=== PATIENT | female | born 1975 | race Caucasian/White ===

== ENCOUNTER 2023-12-25 07:00 | Outpatient (NON) | payer OTHER, SELFPAY | END 2023-12-25 07:01 | disposition home or self-care (01) | LOC: ANHLAB 12-26 09:00 | PROVIDERS: PCP Family Medicine Adolescent Medicine; Visit Provider Internal Medicine Gastroenterology | DX: Z12.11 Encounter for screening for malignant neoplasm of colon (principal); D12.2 Benign neoplasm of ascending colon; D12.5 Benign neoplasm of sigmoid colon | CPT/HCPCS: 88305 ==

== ENCOUNTER 2023-12-25 07:02 | Day surgery (SDC) | payer OTHER, SELFPAY ==
[2023-10-24 09:38] VITALS: BMI 31.6
[2023-12-13 07:54] VITALS: BMI 31.2
--- NOTE | 2023-12-24 14:11 | PM.HPGS ---
History of Present Illness History of Present Illness Consent: Risks, benefits, and alternatives have been discussed and questions answered. Patient agrees to proceed with procedure. Chief complaint: Other Fecal Abnormalities Narrative: Rosa Sarah is a 48 year old female who is referred for colon cancer screening, due to + cologuard test. Review of Systems Review of Systems: All systems reviewed & are unremarkable except as noted in HPI and below PMFSH Past Medical History Medical History Meniere's disease Obesity Social History Social History Smoking status: Never smoker Alcohol intake: never Substance use: never Substance use type: does not use Living arrangements: with family Spiritual care concerns: No Meds Home Medications and Allergies Home Medications Medication Instructions Recorded Confirmed Type riboflavin (vitamin B2) 400 mg 400 mg PO DAILY 03/16/23 12/25/23 History tablet triamterene 37.5 1 cap PO DAILY 03/16/23 12/25/23 History mg-hydrochlorothiazide 25 mg capsule atorvastatin 10 mg tablet 10 mg PO DAILY #90 tabs 09/03/23 12/25/23 Rx diazepam 5 mg tablet See Rx Instructions PO TID PRN 11/12/23 12/25/23 Rx vertigo #20 tabs Allergies Allergy/AdvReac Type Severity Reaction Status Date / Time penicillin G Allergy Mild Rash Verified 12/25/23 08:09 NSAIDS (Non-Steroidal Allergy Unknown Swelling Verified 12/25/23 08:09 Anti-Inflamma Exam Const: General: alert Orientation/consciousness: patient oriented x3 Resp: Auscultation: clear to auscultation bilaterally Cardio: Rhythm: regular rhythm GI: GI Palp: Yes Soft to palpation and No Tenderness to palpation present (GI) Neuro: General: patient oriented x3 Assessment and Plan Assessment and plan (1) Colon cancer screening: Code(s): Z12.11 - Encounter for screening for malignant neoplasm of colon Status: Acute Assessment and Plan: Colonoscopy with possible biopsy or polypectomy or cautery or injection of substances.
[2023-12-25 08:17] VITALS: BP 129/95; PULSE 87; RESP 16; TEMP 36.2; O2SAT 100; BMI 33.6
[2023-12-25] MEDS: LACTATED RINGERS 1,000 ML 150 ML IV CONT (08:37)
--- NOTE | 2023-12-25 08:43 | WPDANESEPPF ---
Anes - Initial Pre Proc Eval Procedure: Operation Date: 12/25/23 09:30 Proposed Procedures p Colonoscopy - Migue Pereira MD Date/Time: 12/25/23 08:43 Surgeon: Migue Pereira MD Pre Op Diagnosis: Other Fecal Abnormalities Patient Data Age: 48 Gender: F Height: 1.7 m Weight: 97.4 kg Last Vital Signs Temp 36.2 C L 12/25/23 08:17 Pulse 87 12/25/23 08:17 Resp 16 12/25/23 08:17 BP 129/95 H 12/25/23 08:17 Pulse Ox 100 12/25/23 08:17 O2 Del Method Room Air 12/25/23 08:17 Allergies Allergy/AdvReac Type Severity Reaction Status Date / Time penicillin G Allergy Mild Rash Verified 12/25/23 08:09 NSAIDS (Non-Steroidal Allergy Unknown Swelling Verified 12/25/23 08:09 Anti-Inflamma Home Medications Medication Instructions Recorded Confirmed Type riboflavin (vitamin B2) 400 mg 400 mg PO DAILY 03/16/23 12/25/23 History tablet triamterene 37.5 1 cap PO DAILY 03/16/23 12/25/23 History mg-hydrochlorothiazide 25 mg capsule atorvastatin 10 mg tablet 10 mg PO DAILY #90 tabs 09/03/23 12/25/23 Rx diazepam 5 mg tablet See Rx Instructions PO TID PRN 11/12/23 12/25/23 Rx vertigo #20 tabs Patient hx anesthesia problems: none Family hx anesthesia problems: none Results Review: All pre-operative results and documents have been reviewed as part of the pre-operative evaluation. [facility] Past Medical History Medical History (Updated 12/25/23 @ 08:43 by Eric Will MD) Meniere's disease Obesity Social History Social History Smoking status: Never smoker Alcohol intake: never Substance use: never Substance use type: does not use Living arrangements: with family Spiritual care concerns: No Anes - Eval Final PreProcedure Day of Procedure 12/25/23 08:43 Patient weight: obese Heart: regular rate and rhythm Lungs: clear to auscultation Airway: Mallampati scale class II Neurological: alert and oriented Last oral intake: >/= 8 hours ASA classification: II Emergent: no Anesthetic plan: proceed Anesthesia type and monitoring: general GIVS and standard monitoring Results Review: All pre-operative results and documents have been reviewed as part of the pre-operative evaluation. Informed Consent: The patient's anesthetic plan and its attendant risks and benefits were discussed with the patient/family/POA. Questions were solicited and answers provided to the satisfaction of the patient/family/POA.
[2023-12-25 09:50] VITALS: BP 109/79; PULSE 88; RESP 16; O2SAT 100
[2023-12-25 10:00] VITALS: BP 122/88; PULSE 61; RESP 15; O2SAT 100
--- NOTE | 2023-12-25 10:03 | WPDANESPN ---
Anes - Prog Note Post-Op Date/Time: 12/25/23 10:03 Cardiovascular status: normal Respiratory status: normal Airway patency: baseline Mental status: baseline Post-Op hydration status: normal Vital Signs: Last Vital Signs Temp 36.2 C L 12/25/23 08:17 Pulse 61 12/25/23 10:00 Resp 15 12/25/23 10:00 BP 122/88 12/25/23 10:00 Pulse Ox 100 12/25/23 10:00 O2 Del Method Room Air 12/25/23 10:00 Pain Score (VAS): 0/10 I/O: Intake & Output 12/24/23 12/25/23 12/25/23 23:59 07:59 15:59 Intake Total 300 Balance 300 Patient Feedback: Patient satisfied with anesthetic care.
[2023-12-25 10:10] VITALS: BP 124/85; PULSE 66; RESP 16; O2SAT 100
== END 2023-12-25 10:20 | disposition home or self-care (01) ==
PROVIDERS: PCP Family Medicine Adolescent Medicine; Visit Provider Internal Medicine Gastroenterology
PROC: 0DJD8ZZ Inspection of Lower Intestinal Tract, Via Natural or Artificial Opening Endoscopic (ICD-10-PCS; CPT 45378; principal; 2023-12-25 09:30)
DX: Z12.11 Encounter for screening for malignant neoplasm of colon (principal); D12.2 Benign neoplasm of ascending colon; D12.5 Benign neoplasm of sigmoid colon
CPT/HCPCS: 45385

== ENCOUNTER 2024-10-22 14:36 | Outpatient (CLI) | payer OTHER, SELFPAY ==
--- NOTE | ~2024-10-22 | MR_ITS ---
EXAMINATION: MR shoulder RT wo con DATE: 10/22/2024 15:02 INDICATION: Enthesopathy with chronic right shoulder pain TECHNIQUE: Magnetic resonance imaging (MRI) of the right shoulder was performed without intravenous c ontrast. Sequences included axial PD-weighted FS FSE, coronal oblique PD-weighted FS FSE, coronal obl ique T2-weighted FS FSE, sagittal PD-weighted FS FSE, and sagittal T1-weighted SE. COMPARISON: None. FINDINGS: Coracoacromial arch: The acromion undersurface is mildly curved in morphology (type I-II). The coracoacromial ligament is normal. Mild acromioclavicular osteoarthritis. Rotator cuff: The supraspinatus, infraspinatus and teres minor tendons are normal. The subscapularis tendon is norm al. Normal rotator cuff muscle bulk and signal. Biceps tendon, glenoid labrum and glenohumeral cartilage: Long head of the biceps tendon is normal. Glenoid labrum is normal with normal anterosuperior sublabr al foramen. Small chondral fissure along the cephalad rim of the glenoid with very small underlying c ystlike change. Fluid: Physiologic amount of fluid in the glenohumeral joint and biceps tendon sheath. No loose osteochondr al bodies. Small amount of fluid in the subacromial/subdeltoid bursa consistent with mild bursitis. Bones: Small low signal intensity bone island at the acromion. No fracture or pathologic marrow replacing pr ocess. There is increased soft tissue replacing the normal T1 fat signal at the rotator cuff interval which can be seen in the setting of adhesive capsulitis which is ultimately a clinical diagnosis. IMPRESSION: 1. Small chondral fissure at the 12:00 position of the rim of the glenoid with very small underlying subarticular cystlike change. Glenohumeral cartilage is otherwise unremarkable with normal glenoid la ismael. 2. Increased soft tissue replacing the normal T1 hyperintense fat signal at the rotator cuff interval which can be seen in the setting of adhesive capsulitis which is ultimately a clinical diagnosis. 3. Mild acromioclavicular osteoarthritis. Reviewed, dictated and finalized at location [facility]. [facility] IMPRESSION: 1. Small chondral fissure at the 12:00 position of the rim of the glenoid with very small underlying subarticular cystlike change. Glenohumeral cartilage is o therwise unremarkable with normal glenoid labrum. 2. Increased soft tissue replacing the normal T1 hyperintense fat signal at the rotator cuff interval which can be seen in the setting of adhesive capsulitis which is ultimately a clinical diagnosis. 3. Mild acromioclavicular osteoarthritis.
== END 2024-10-22 14:37 | disposition home or self-care (01) ==
LOC: MICIMG 14:36
PROVIDERS: PCP Family Medicine Adolescent Medicine; Visit Provider Family Medicine Adolescent Medicine
DX: M77.8 Other enthesopathies, not elsewhere classified (principal); M19.011 Primary osteoarthritis, right shoulder
CPT/HCPCS: 73221

== ENCOUNTER 2025-03-22 10:05 | Emergency (ER) | payer OTHER, SELFPAY ==
--- NOTE | ~2025-03-22 | XR_ITS ---
EXAMINATION: XR wrist RT min 3V DATE: 03/22/2025 10:47 INDICATION: Nontraumatic shoulder pain at the hamate and pisiform TECHNIQUE: Posteroanterior, ulnar deviation, oblique, and lateral views of the right wrist were obtai emily. COMPARISON: none FINDINGS: Alignment is normal. No fracture. Joint spaces are normal. No erosions. There are couple small hetero topic ossicles along the proximal margin of the hook the hamate. Soft tissues are unremarkable. IMPRESSION: 1. No acute osseous abnormality. 2. 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 Reviewed, dictated and finalized at location A. IMPRESSION: 1. No acute osseous abnormality. 2. Multiple heterotopic ossicles along the proximal margin of the hamate, poten hungy enthesopathic at the insertion of the flexor carpi ulnaris tendon.
[2025-03-22 10:12] VITALS: BP 176/95; PULSE 85; RESP 16; TEMP 36.3; O2SAT 100
--- NOTE | 2025-03-22 10:44 | ED.EXTPRO ---
HPI - Extremity Problem General Chief complaint: Extremity Injury, Upper Stated complaint: R Hand Pain Time Seen by Provider: 03/22/25 10:33 Source: patient and RN notes reviewed Mode of arrival: ambulatory Limitations: no limitations History of Present Illness HPI Narrative: Patient presents today complaining of pain to the palmar aspect of her right hand at the pisiform x3 days. Denies trauma, injury, repetitive motion, or repetitive gripping. Pain has been increasing since onset and increases significantly with range of motion the wrist or fingers. Denies numbness or tingling in the hand or wrist. 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 Reports her pain is out of proportion to physical findings, and has noted some very mild localized swelling to the affected area. She has tried a wrist brace at night as well as tylenol and ice without much relief. Reports some recent radiation of the pain through to the dorsum of the hand. Related Data Allergies Allergy/AdvReac Type Severity Reaction Status Date / Time penicillin G Allergy Mild Rash Verified 03/22/25 10:07 NSAIDS (Non-Steroidal Allergy Unknown Swelling Verified 03/22/25 10:07 Anti-Inflamma PMFSH Past Medical History Medical History Obesity Meniere's disease Social History Social History Smoking status: Never smoker Alcohol intake: never Substance use: never Substance use type: does not use Do You Feel Safe in your Home?: Yes Lack of Transportation: No Lack of Food: Never True Current Housing: I Have Housing Concerned About Future Housing: No Difficulty Paying Gas/Electric Bills: No Difficulty Paying for Meds: No Currently Unemployed: No Education: Master's Degree or Higher Difficulty w/ Childcare or Family Care: No Living arrangements: with family Spiritual care concerns: No Comments At time of signature, I have reviewed and agree with nursing past medical, surgical, social and family history unless otherwise noted. Please see nursing chart for further information. There is no relevant family history pertinent to the presenting complaint Exam Narrative: GENERAL: Well-appearing, well-nourished, and in no acute distress. HEAD: Normocephalic, atraumatic. EYES: EOMI. No redness or drainage. ENT: Mucous membranes pink and moist. NECK: Normal AROM. CHEST: No respiratory distress. EXTREMITIES: Right hand:Tenderness even to light touch over the pisiform with slight edema. No erythema, ecchymosis, or deformity noted. No abnormalities over the remainder of the hand, wrist, or forearm. Range of motion of the wrist and hand elicits pain. Distal sensation intact in all 5 fingers. Capillary refill normal. Radial pulse normal. SKIN: Warm, dry, no rash. Capillary refill normal. Normal skin turgor. NEURO: No focal deficits. Alert and oriented x3. Gait steady. PSYCH: Normal affect. No signs of depression or anxiety. Course Course Level of Care: Express Care Visit Vital Signs Vital signs: Vital Signs Temperature 97.4 F L 03/22/25 10:12 Pulse Rate 85 03/22/25 10:12 Respiratory Rate 16 03/22/25 10:12 Blood Pressure 176/95 H 03/22/25 10:12 Pulse Oximetry 100 03/22/25 10:12 Temperature 97.4 F L 03/22/25 10:12 Pulse Rate 85 03/22/25 10:12 Respiratory Rate 16 03/22/25 10:12 Blood Pressure 176/95 H 03/22/25 10:12 Pulse Oximetry 100 03/22/25 10:12 Reviewed MDM - Extremity (Nontraumatic) MDM Narrative Medical decision making narrative: 49-year-old female patient presents today with severe pain over the area of the right piece of form x3 days that has been worsening since onset. Denies injury, trauma, repetitive motions. Denies numbness or tingling. Pain increases significantly with movement. OTC treatments have not been helpful. 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 Exam shows tenderness even with light touch over the affected area with slight localized edema without erythema, ecchymosis. Neurovascularly intact. X-ray shows heterotopic ossicle along the proximal margin of the hamate, potentially enthesopathic at the insertion of the flexor carpi ulnaris tendon. Will try ulnar gutter OCL to see if immobilization will help with her pain. Will also try a Medrol Dose Jason to help with her inflammation. Patient has facial swelling associated with NSAID use and tylenol has not been helpful thus far. She declines any stronger pain medication as well. Recommend follow up with hand specialist for further evaluation, contact info for Dr. Moreno provided. VSS. Differential Diagnosis Differential diagnosis: Likely other (stress fracture, neuropathic pain, carpal tunnel) Imaging Data Radiologist's impression: ITS Impressions Wrist X-Ray 03/22/25 11:36 IMPRESSION: 1. No acute osseous abnormality. 2. 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 Critical Care Time Critical Care Time Critical Care Time: No Discharge Plan Discharge Clinical Impression: Hand pain, right Patient Disposition: Home Condition: Stable Additional Instructions: Wear the OCL for comfort. Remove if you find that it does not provide you comfort. Take tylenol for comfort. Take the Medrol dose jason as prescribed. Follow up with Dr. Moreno for further evaluation and treatment. Patient Language: Welsh Prescriptions: New methylprednisolone [Medrol (Jason)] 4 mg tablets,dose pack See Rx Instructions .ROUTE .COMPLEX Qty: 21 0RF Rx Instructions: orally per package directions No Action Mounjaro 12.5 mg/0.5 mL pen injector 12.5 mg subcut WEEKLY Qty: 2 5RF Follow-up/Referrals: Kan Moreno MD [Physician] - Sergio Beal MD [Primary Care Provider] - Time of Disposition: 11:54
== END 2025-03-22 12:06 | disposition home or self-care (01) ==
PROVIDERS: Emergency Provider Nurse Practitioner; PCP Family Medicine Adolescent Medicine
DX: M79.641 Pain in right hand (principal); E66.9 Obesity, unspecified; Z68.35 Body mass index [BMI] 35.0-35.9, adult; H81.09 Meniere's disease, unspecified ear
CPT/HCPCS: 73110; 99213; A4565; G0463